=== PATIENT | male | born 1950 | race Caucasian/White ===

== ENCOUNTER 2016-10-12 09:08 | Outpatient (CLI) | payer MEDICARE ==
[2016-10-12 12:58] LABS: Hemoglobin A1c 7.9 % (4.0-6.0)
== END 2016-10-12 09:09 | disposition home or self-care (01) ==
LOC: NAVSJIPCSP 09:08
PROVIDERS: ATTEND Internal Medicine
DX: E78.5 Hyperlipidemia, unspecified (principal); E11.29 Type 2 diabetes mellitus with other diabetic kidney complication
CPT/HCPCS: 36415; 80061; 83036

== ENCOUNTER 2016-11-04 06:04 | Outpatient (CLI) | payer MEDICARE ==
[2016-11-04 09:19] LABS: ALT (SGPT) 83 U/L (0-55); AST (SGOT) 43 U/L (5-34); Alkaline Phosphatase 77 U/L (40-150); Anion Gap 15 mmol/L (10-20); BUN (Urea Nitrogen) 17 mg/dL (8.4-25.7); Bilirubin, Total 0.7 mg/dL (0.2-1.2); Calc. Creatinine Clearance 0 mL/min (70-130); Calcium 9.6 mg/dL (7.8-10.44); Carbon Dioxide 31 mmol/L (23-31); Chloride 100 mmol/L (98-107); Estimated GFR-MDRD 68; Globulin 3.2 g/dL (2.4-3.5); Protein, Total 7.6 g/dL (5.8-8.1)
== END 2016-11-04 06:05 | disposition home or self-care (01) ==
LOC: NAV LAB 06:04
PROVIDERS: ATTEND Internal Medicine Endocrinology, Diabetes & Metabolism
DX: E11.69 Type 2 diabetes mellitus with other specified complication (principal); N18.3 Chronic kidney disease, stage 3 (moderate); E78.5 Hyperlipidemia, unspecified; I12.9 Hypertensive chronic kidney disease with stage 1 through stage 4 chronic kidney disease, or unspecified chronic kidney disease
CPT/HCPCS: 36415; 80053; 85018

== ENCOUNTER 2016-12-09 11:21 | Outpatient (CLI) | payer MEDICARE | END 2016-12-09 11:22 | disposition home or self-care (01) | LOC: NAV LAB 11:21 | PROVIDERS: ATTEND Internal Medicine Gastroenterology | DX: K59.2 Neurogenic bowel, not elsewhere classified (principal); K75.2 Nonspecific reactive hepatitis; R10.84 Generalized abdominal pain | CPT/HCPCS: 36415; 87522 ==

== ENCOUNTER 2017-02-04 06:04 | Outpatient (CLI) | payer MEDICARE ==
[2017-02-04 07:00] LABS: Hemoglobin A1c 7.8 % (4.0-6.0)
[2017-02-04 07:28] LABS: ALT (SGPT) 63 U/L (8-55); AST (SGOT) 42 U/L (5-34); Albumin 4.2 g/dL (3.4-4.8); Alkaline Phosphatase 55 U/L (40-150); Anion Gap 14 mmol/L (10-20); BUN (Urea Nitrogen) 20 mg/dL (8.4-25.7); Bilirubin, Total 0.8 mg/dL (0.2-1.2); Calc. Creatinine Clearance 0 mL/min (70-130); Calcium 9.8 mg/dL (7.8-10.44); Carbon Dioxide 31 mmol/L (23-31); Chloride 99 mmol/L (98-107); Estimated GFR-MDRD 63; Globulin 3.2 g/dL (2.4-3.5); Glucose 155 mg/dL (80-115); Potassium 4.1 mmol/L (3.5-5.1); Protein, Total 7.4 g/dL (5.8-8.1); Sodium 140 mmol/L (136-145)
== END 2017-02-04 06:05 | disposition home or self-care (01) ==
LOC: NAV LAB 06:04
PROVIDERS: ATTEND Internal Medicine Endocrinology, Diabetes & Metabolism
DX: E78.5 Hyperlipidemia, unspecified (principal); E11.69 Type 2 diabetes mellitus with other specified complication; I10 Essential (primary) hypertension
CPT/HCPCS: 36415; 80053; 83036

== ENCOUNTER 2017-04-28 06:50 | Outpatient (CLI) | payer MEDICARE ==
[2017-04-28 07:48] LABS: Hemoglobin A1c 6.8 % (4.0-6.0)
[2017-04-28 07:54] LABS: ALT (SGPT) 51 U/L (8-55); AST (SGOT) 33 U/L (5-34); Albumin 4.3 g/dL (3.4-4.8); Alkaline Phosphatase 61 U/L (40-150); Anion Gap 14 mmol/L (10-20); BUN (Urea Nitrogen) 15 mg/dL (8.4-25.7); Bilirubin, Total 0.9 mg/dL (0.2-1.2); Calc. Creatinine Clearance 0 mL/min (70-130); Calcium 9.6 mg/dL (7.8-10.44); Carbon Dioxide 31 mmol/L (23-31); Cardiac Risk 4.3 (Less than 4.5); Chloride 101 mmol/L (98-107); Cholesterol 163 mg/dl (< 200 Desired); Estimated GFR-MDRD 67; Glucose 87 mg/dL (80-115); HDL Cholesterol 38 mg/dL (>60 Neg Risk); LDL Cholesterol, Calculated 97 mg/dL; Potassium 4.4 mmol/L (3.5-5.1); Protein, Total 7.3 g/dL (5.8-8.1); Sodium 142 mmol/L (136-145); Triglycerides 142 mg/dL (Less than 150)
[2017-04-28 09:43] LABS: Follow-up Chemistry Comp? YES; Follow-up Result - Chemistry REPORT FAXED
== END 2017-04-28 06:51 | disposition home or self-care (01) ==
LOC: NAV LAB 06:50
PROVIDERS: ATTEND Internal Medicine Endocrinology, Diabetes & Metabolism
DX: I12.9 Hypertensive chronic kidney disease with stage 1 through stage 4 chronic kidney disease, or unspecified chronic kidney disease (principal); N18.3 Chronic kidney disease, stage 3 (moderate); E11.69 Type 2 diabetes mellitus with other specified complication; E78.5 Hyperlipidemia, unspecified
CPT/HCPCS: 36415; 80053; 80061; 83036

== ENCOUNTER 2017-08-27 14:24 | Outpatient (CLI) | payer MEDICARE ==
--- NOTE | 2017-08-27 15:57 | RAD ---
CHEST 2 VIEWS: HISTORY: Chest pain. Dyspnea. COMPARISON: 09/27/11. FINDINGS: Cardiac silhouette and pulmonary vasculature are upper limits of normal. Mediastinum is midline with postoperative changes. There is no confluent airspace consolidation, pneumothorax, or pleural fluid evident. IMPRESSION: Borderline cardiomegaly and pulmonary vascular congestion. Appearance is similar to the prior study from 2011. POS: [facility]
== END 2017-08-27 14:25 | disposition home or self-care (01) ==
LOC: NAV RAD 14:24
PROVIDERS: ATTEND Physician Assistant Medical
DX: I50.42 Chronic combined systolic (congestive) and diastolic (congestive) heart failure (principal); R09.89 Other specified symptoms and signs involving the circulatory and respiratory systems
CPT/HCPCS: 71020